=== PATIENT | male | born 1965 | race Caucasian/White ===

== ENCOUNTER 2019-02-07 11:58 | Observation (INO) | payer OTHER ==
[2019-02-07] MEDS ORDERED: ASPIRIN EC 325 MG TAB PO ONE ×2 (12:01→12:23)
[2019-02-07] MEDS ORDERED: NS 1,000 ML IV ONE (12:01)
[2019-02-07] MEDS ORDERED: DIAZEPAM 5 MG TAB PO ONE (12:01)
[2019-02-07] MEDS ORDERED: diphenhydrAMINE 25 MG CAP PO ONE ×2 (12:01→12:23)
[2019-02-07] MEDS ORDERED: FAMOTIDINE 20 MG TAB PO ONE (12:01)
[2019-02-07] MEDS ORDERED: FAMOTIDINE 20 MG TAB ONE (12:23)
[2019-02-07] MEDS ORDERED: DIAZEPAM 5 MG TAB ONE (12:23)
[2019-02-07 12:38] LABS: PLATELET COUNT 243 10^3/uL (150-400)
--- NOTE | 2019-02-07 12:38 | PDPROPOC ---
Sedation Plan of Care Sedation Plan of Care: vital signs stable, mental status noted, patient educated of risks, benefits, alternatives, patient can tolerate sedation ASA Classification: ASA 1 Planned drugs: fentanyl, midazolam Mallampati Score: Class 2 Mallampati Reference Image: Patient passed 3-3-2 rule?: Yes
--- NOTE | 2019-02-07 12:38 | PDHPUP ---
History & Physical Update H&P update statement: This history and physical update is based on an assessment of the patient which was completed after admission or registration (within 24 hours), but prior to the surgery/procedure. H&P update: H&P reviewed & patient examined, no change in patient's condition since H&P completed
[2019-02-07 12:48] LABS: INR 1.01 (0.83-1.16); PROTIME(PATIENT) 12.9 SEC (12.0-15.0)
[2019-02-07] MEDS ORDERED: MIDAZOLAM 2 MG/2 ML VIAL ONE ×2 (14:18→15:10)
[2019-02-07] MEDS ORDERED: LIDOCAINE 1% 300 MG/30 ML SDV ONE (14:18)
[2019-02-07] MEDS ORDERED: fentaNYL 100 MCG/2 ML INJ ONE (14:18)
[2019-02-07] MEDS ORDERED: IOPAMIDOL (ISOVUE-370) 150 ML BTL IV ONE (14:19)
[2019-02-07] MEDS ORDERED: VERAPAMIL 5 MG/2 ML VIAL ONE (14:19)
[2019-02-07] MEDS ORDERED: HEPARIN 10,000 UNIT/10 ML MDV (1,000 UNIT/ML) ONE (14:19)
[2019-02-07] MEDS ORDERED: CLOPIDOGREL BISULFATE 75 MG TAB ONE (15:52)
[2019-02-07] MEDS ORDERED: NITROGLYCERIN 0.4 MG BTL SL PRN (16:00)
[2019-02-07] MEDS ORDERED: HYDROCODONE/APAP 5/325 TAB PO PRN (16:00)
[2019-02-07] MEDS ORDERED: ATROPINE SULFATE 1 MG/10 ML SYR IVP PRN (16:00)
[2019-02-07] MEDS ORDERED: TEMAZEPAM 15 MG CAP PO PRN (16:00)
[2019-02-07] MEDS ORDERED: ONDANSETRON 4 MG/2 ML VIAL IVP PRN (16:00)
[2019-02-07] MEDS ORDERED: ACETAMINOPHEN 325 MG TAB PO PRN (16:00)
[2019-02-07] MEDS ORDERED: CLOPIDOGREL BISULFATE 75 MG TAB PO ONE (16:10)
[2019-02-07] MEDS ORDERED: NS 1,000 ML IV SCH (16:15)
--- NOTE | 2019-02-07 16:22 | PDDXCAT ---
Diagnostic Cath Note - . Date: 02/07/19 Grain Loader: Ferny Indication: other (Chest pain, abnormal ETT, and h/o prior LAD and RCA PCI procedures.) - Procedure Access: right wrist Procedure: left heart catheterization, coronary angiography, left ventriculogram , other (PCI of the RCA) - Materials Left Heart Cath size: 5F Left Heart Cath materials: pigtail (TIG) - Findings-Left Heart Catheterization LM: Normal. LAD: Fluoroscopy demonstrates the presence of a previously placed stent in the proximal to mid-LAD. Angiography reveals that the stented segment is widely patent. The LAD and its diagonal branches demonstrate mild irregularities. LCX: Circumflex and its obtuse marginal branches demonstrate mild irregularities. RCA: Fluoroscopy reveals the presence of a previously stented segment spanning from the proximal to mid-RCA. Angiography demonstrates total occlusion of the RCA early in the stented segment. The distal branches receive [id number] collateral filling. EDP: 12 mmHg LVEF: 60% Wall motion: Normal. Complications: None. Estimated blood loss: <50ml Closure method: TR Band Assessment: 1) Normal left ventricular systolic function. 2) CAD as described above. 3) Successful PCI of the RCA with placement of a single drug coated stent. Intervention: Based on the patient's clinical history and diagnostic angiography, the decision was made to perform PCI of the totally occluded RCA. The patient received 3000 units of intravenous heparin in addition to the 5,000 units that had been given at the beginning of the procedure. A 5 E[place]an Hockeystick-I guide catheter was advanced to the proximal RCA. An Intuition guidewire was advanced to the distal portion of the RCA. Attempts to advance a 2.5 x 12 mm Emerge balloon were unsuccessful secondary to a lack of guide catheter support. The guide catheter was changed to a 5 [place]an AL-I catheter. The Intuition guidewire was readvanced to the distal portion of the RCA. The 2.5 x 12 mm Emerge balloon was advanced into position and a series of inflations was performed in the proximal to mid-RCA. A 3.5 x 24 mm Synergy stent was advanced into position and deployed at high pressure. Final angiograms demonstrated 0% residual stenosis and CLAUDIA-III flow.
[2019-02-08 07:27] VITALS: BP 127/88
[2019-02-08] MEDS ORDERED: ROSUVASTATIN CALCIUM 10 MG TAB PO SCH (09:00)
[2019-02-08] MEDS ORDERED: PANTOPRAZOLE SODIUM 40 MG TAB PO SCH (09:00)
[2019-02-08] MEDS ORDERED: CLOPIDOGREL BISULFATE 75 MG TAB PO SCH (09:00)
[2019-02-08] MEDS ORDERED: ASPIRIN EC 325 MG TAB PO SCH (09:00)
--- NOTE | 2019-02-08 09:36 | ASMTCMCOM ---
CM Note CM Note Notes: 02/08/2019 Case Management Note Reviewed chart. Pt admitted for heart cath. There are no therapy evals ordered today. There are no identified case management d/c needs d/t pt age, employment status, marital status and independence with ADL's prior to admission. Case Management d/c poc: independent with follow up as directed. Date Signed: 02/08/2019 09:35 AM Electronically Signed By:Chantale Kohli RN
--- NOTE | 2019-02-08 11:18 | ASDISCHSUM ---
Discharge Information Plan Status:Home with No Needs Medically Cleared to Leave:02/08/2019 Discharge Date:02/08/2019 CM D/C Disposition:Home, Routine, Self-Care ADT D/C Disposition:Home, Routine, Self-Care Projected Discharge Date:02/08/2019 Transportation at D/C: Discharge Delay Reason: Follow-Up Date:02/08/2019 Discharge Slot: Final Diagnosis: Placement Information Patient Contact Information Contact Name:DOMINGO Relationship: Address:[address] Work Phone: City:[place] Alternate Phone: [facility]/Zip Code:[place] [address] Email: Financial Information Financial Class:HMO and PPO Plans Primary Plan Desc:YANCY PPO POS HMO SIG ADM Primary Plan Number:[id number] Secondary Plan Desc: Secondary Plan Number: Assessment Information [facility] CM Progress Note CM Note CM Note Notes: 02/08/2019 Case Management Note Reviewed chart. Pt admitted for heart cath. There are no therapy evals ordered today. There are no identified case management d/c needs d/t pt age, employment status, marital status and independence with ADL's prior to admission. Case Management d/c poc: independent with follow up as directed. Date Signed: 02/08/2019 09:35 AM Electronically Signed By:Chantale Kohli RN LACE LACE Length of stay for Answers: Less than 1 day current admission Acuity / Level of Answers: No Care: Did the patient have an inpatient admission? Comorbidities - select Answers: Opioid dependence all that apply / Chronic pain # of Emergency department Answers: 0 visits in the last 6 months Score: 4 Date Signed: 02/08/2019 11:17 AM Electronically Signed By:Chantale Kohli RN Intervention Information
--- NOTE | 2019-02-08 11:31 | GDS ---
[f rep st] DISCHARGE SUMMARY DISCHARGE DIAGNOSES: 1. Coronary artery disease, status post stenting for in-stent restenoses of a totally occluded mid r ight coronary artery with a 3.5 x 24 mm Synergy drug-eluting stent. 2. Prior stenting to left anterior descending and right coronary artery. 3. Severe hyperlipidemia. HOSPITAL COURSE: For detailed H and P, please see prior dictation. Briefly, the patient is a 53-yea r-old male with a history of stenting to his LAD and right coronary artery in 2009. He presented to our office complaining of symptoms consistent with angina. He was having exertional chest discomfort , which was relieved with rest. He had an exercise treadmill test, which was positive for ischemia. Ultimately, he decided to proceed with an angiogram, which was performed by Dr. Hernandez Isaacs on [facility] 2018. He was found to have a totally occluded right coronary artery within a previously plac ed stent. This was stented with a 3.5 x 24 mm Synergy drug-eluting stent. The LAD demonstrated a pa tent previously placed stent. The diagonal arteries had mild irregularities. Left circumflex artery had mild irregularities. He had preserved LV function with an ejection fraction of 60%. The following morning, he denied any chest discomfort or right wrist discomfort where access was obta ined for his angiogram. He was monitored on telemetry, remained in normal sinus rhythm. His EKG the day of discharge showed normal sinus rhythm with borderline inferior Q-waves and early R-wave progre ssion. PHYSICAL EXAMINATION: GENERAL: The patient appears in no acute distress. VITAL SIGNS: Blood press ure 127/88, heart rate 89, oxygen saturation of 94% on room air, afebrile. LUNGS: Clear to ausculta tion. No wheezes, rhonchi, or crackles auscultated. CARDIAC: Regular rate and rhythm, without any significant murmurs, rubs, or gallops appreciated. EXTREMITIES: Right wrist clean, intact without a ny evidence of infection or hematoma. DISCHARGE MEDICATIONS: Aspirin 325 mg daily, Plavix 75 mg daily, Crestor 10 mg daily, Praluent 75 mg subcu q.14 days, Protonix 40 mg daily. LABORATORY DATA: Total cholesterol 196, LDL 124, HDL 53, and triglycerides 97. PLAN: The patient is currently stable and ready for discharge home. He has been given wrist precaut ions. He is aware that he is to remain on aspirin and Plavix for a minimum of 1 year. He will follo w up with Dr. Isaacs as scheduled on February 15 at 1:30 p.m. Greater than 30 minutes was spent coordinating the patient's care today. /[id number]/MODL
--- NOTE | 2019-02-11 18:41 | CPEKG ---
Test Reason : OPEN Blood Pressure : / mmHG Vent. Rate : 083 BPM Atrial Rate : 083 BPM P-R Int : 139 ms QRS Dur : 088 ms QT Int : 342 ms P-R-T Axes : 050 056 001 degrees QTc Int : 402 ms Sinus rhythm Abnormal R-wave progression, early transition Abnormal inferior Q waves Confirmed by Reji Light ([id number]) on 02/11/2019 6:41:11 PM Referred By: Hernandez Isaacs Confirmed By:Reji Light
--- NOTE | 2019-02-11 18:50 | CPEKG ---
Test Reason : OPEN Blood Pressure : / mmHG Vent. Rate : 085 BPM Atrial Rate : 085 BPM P-R Int : 141 ms QRS Dur : 084 ms QT Int : 357 ms P-R-T Axes : 053 068 005 degrees QTc Int : 425 ms Sinus rhythm Abnormal R-wave progression, early transition Confirmed by Reji Light ([id number]) on 02/11/2019 6:49:40 PM Referred By: Hernandez Isaacs Confirmed By:Reji Light
--- NOTE | 2019-02-11 18:50 | CPEKG ---
Test Reason : OPEN Blood Pressure : / mmHG Vent. Rate : 074 BPM Atrial Rate : 074 BPM P-R Int : 154 ms QRS Dur : 087 ms QT Int : 367 ms P-R-T Axes : 052 064 001 degrees QTc Int : 408 ms Sinus rhythm Abnormal R-wave progression, early transition Confirmed by Reji Light ([id number]) on 02/11/2019 6:50:16 PM Referred By: Hernandez Isaacs Confirmed By:Reji Light
== END 2019-02-08 12:28 | disposition home or self-care (01) ==
LOC: FCATH 11:58 → F2W 15:58
PROVIDERS: ADMIT Internal Medicine Interventional Cardiology; ATTEND Internal Medicine Cardiovascular Disease
DX: T82.855A Stenosis of coronary artery stent, initial encounter (principal); E78.5 Hyperlipidemia, unspecified
CPT/HCPCS: 92928; 93458; C1725; C1769; C1887; G0378; C1874; C9600; J1644; J2250; J3010; Q9967